=== PATIENT | male | born 1990 | race Two or more races ===

== ENCOUNTER 2019-12-05 18:29 | Inpatient (IN) | payer OTHER ==
[2019-12-05 19:08] VITALS: BMI 22.4
--- NOTE | 2019-12-05 21:23 | HP ---
CIWA Score Nausea/Vomitin Muscle Tremors: 3 Anxiety: 3 Agitation: 2 Paroxysmal Sweats: 3 Orientation: 0-Oriented Tacttile Disturbances: 0-None Auditory Disturbances: 0-None Visual Disturbances: 0-None Headache: 4-Moderately Severe CIWA-Ar Total Score: 18 - Admission Criteria OASAS Guidelines: Admission for Medically Managed Detox: Requires at least one of the followin. CIWA greater than 12 2. Seizures within the past 24 hours 3. Delirium tremens within the past 24 hours 4. Hallucinations within the past 24 hours 5. Acute intervention needed for co occurring medical disorder 6. Acute intervention needed for co occurring psychiatric disorder 7. Severe withdrawal that cannot be handled at a lower level of care (continued vomiting, continued diarrhea, abnormal vital signs) requiring intravenous medication and/or fluids 8. Admission ROS [facility] Chief Complaint: Seeking admission to detox from benzo. Allergies/Adverse Reactions: Allergies Allergy/AdvReac Type Severity Reaction Status Date / Time No Known Allergies Allergy Verified 12/05/19 19:00 History of Present Illness: 29 years old male with a year of benzo. and heroin dependence is seeking admission to detox. Patient reports insignificant period of sobriety. He denies medical history, psych. history, suicide attempt and suicidal ideation at this time. Patient reports [facility]. This is his first admission to [facility]. He is on 40mg tablet oral daily methadone maintenance therapy. Dose is yet to be confirmed by the nurse. Patient reports that he was referred from [facility] emergency room, [place]. He denies blackouts Confidential Drug Utilization Report Search Terms: enrique tabares, 1990 Search Date: 12/05/2019 09:42:37 PM The Drug Utilization Report below displays all of the controlled substance prescriptions, if any, that your patient has filled in the last twelve months. The information displayed on this report is compiled from pharmacy submissions to the Department, and accurately reflects the information as submitted by the pharmacies. You have not added a WOODY number. Keeping your WOODY number(s) up to date on the My WOODY Numbers page will enable the separation of your prescriptions from others ' in the search results. Others' Prescriptions Patient Name: Enrique Tabares Date: 1990 Address: [address] [place] [address] Sex: Male Rx Written Rx Dispensed Drug Quantity Days Supply Prescriber Name 08/28/2019 08/30/2019 buprenorphine-naloxone 4-1 mg sl film 14 7 MaddirusselloRsamaria pérezravin * - Drugs marked with an asterisk are compound drugs. If the compound drug is made up of more than one controlled jeronimo Exam Limitations: No Limitations - Ebola screening Have you traveled outside of the country in the last 21 days: No Have you had contact with anyone from an Ebola affected area: No Do you have a fever: No - Review of Systems Constitutional: Chills, Malaise, Night Sweats EENT: reports: Nose Congestion Respiratory: reports: No Symptoms reported Cardiac: reports: No Symptoms Reported GI: reports: Diarrhea (x 2), Poor Fluid Intake, Vomiting (x 1), Abdominal cramping : reports: No Symptoms Reported Musculoskeletal: reports: Back Pain, Joint Pain, Muscle Pain Integumentary: reports: Dryness, Flushing Neuro: reports: Tremors Endocrine: reports: No Symptoms Reported Hematology: reports: No Symptoms Reported Psychiatric: reports: Judgement Intact, Mood/Affect Appropiate, Orientated x3 Other Systems: Reviewed and Negative Patient History - Patient Medical History Hx Anemia: No Hx Asthma: No Hx Chronic Obstructive Pulmonary Disease (COPD): No Hx Cancer: No Hx Cardiac Disorders: No Hx Congestive Heart Failure: No Hx Hypertension: No Hx Hypercholesterolemia: No Hx Pacemaker: No HX Cerebrovascular Accident: No Hx Seizures: No Hx Dementia: No Hx Diabetes: No Hx Gastrointestinal Disorders: No Hx Liver Disease: No Hx Genitourinary Disorders: No Hx Sexually Transmitted Disorders: No Hx Renal Disease (ESRD): No Hx Thyroid Disease: No Hx Human Immunodeficiency Virus (HIV): No (Negative 2018) Hx Hepatitis C: No Hx Depression: No Hx Suicide Attempt: No (Denies suicidal ideation at this time) Hx Bipolar Disorder: No Hx Schizophrenia: No - Patient Surgical History Past Surgical History: No Hx Neurologic Surgery: No Hx Cataract Extraction: No Hx Cardiac Surgery: No Hx Lung Surgery: No Hx Abdominal Surgery: No Hx Appendectomy: No Hx Cholecystectomy: No Hx Genitourinary Surgery: No Hx Orthopedic Surgery: No Anesthesia Reaction: No - PPD History Previous Implant?: Yes Documented Results: Negative w/o proof Implanted On Prior R Admission?: No PPD to be Administered?: Yes - Reproductive History Patient is a Female of Child Bearing Age (11 -55 yrs old): No (male) - Smoking Cessation Smoking history: Current every day smoker Have you smoked in the past 12 months: Yes Aproximately how many cigarettes per day: 20 Hx Chewing Tobacco Use: No Initiated information on smoking cessation: Yes 'Breaking Loose' booklet given: 12/05/19 - Substance & Tx. History Hx Alcohol Use: No Hx Substance Use: Yes Substance Use Type: Cocaine, Opiates, Prescribed Hx Substance Use Treatment: Yes ([facility], [place]) - Substances abused Heroin Substance route: Inhalation Frequency: Daily Amount used: 1 gram Age of first use: 28 Date of last use: 12/04/19 Cocaine Substance route: Inhalation Frequency: Daily Amount used: $20 Age of first use: 29 Date of last use: 12/04/19 Alprazolam (Xanax) Substance route: Oral Frequency: Daily Amount used: 2mg Age of first use: Date of last use: 12/05/19 Admission Physical Exam S - Vital Signs Vital Signs: Vital Signs - 24 hr 12/05/19 12/05/19 19:00 19:37 Temperature 98.5 F 98.5 F Pulse Rate 91 H 91 H Respiratory 16 16 Rate Blood Pressure 124/68 124/68 - Physical General Appearance: Yes: Moderate Distress, Tremorous, Sweating, Anxious HEENTM: Yes: Within Normal Limits, EOMI, Normal ENT Inspection, Normal Voice, ABHISHEK Respiratory: Yes: Lungs Clear, Normal Breath Sounds, No Respiratory Distress Neck: Yes: Within Normal Limits Breast: Yes: Breast Exam Deferred Cardiology: Yes: Tachycardia Abdominal: Yes: Normal Bowel Sounds, Soft Genitourinary: Yes: Within Normal Limits Back: Yes: Normal Inspection Musculoskeletal: Yes: Back pain, Muscle Pain Extremities: Yes: Tremors Neurological: Yes: Within Normal Limits, Alert, Normal Mood/Affect Integumentary: Yes: Warm Lymphatic: Yes: Within Normal Limits - Diagnostic (1) Opioid dependence with withdrawal Current Visit: Yes Status: Acute (2) Nicotine dependence Current Visit: Yes Status: Chronic Qualifiers: Nicotine product type: cigarettes Substance use status: in withdrawal Qualified Code(s): F17.213 - Nicotine dependence, cigarettes, with withdrawal (3) Methadone maintenance therapy patient Current Visit: Yes Status: Chronic (4) Cocaine dependence Current Visit: Yes Status: Acute Qualifiers: Substance use status: in withdrawal Qualified Code(s): F14.23 - Cocaine dependence with withdrawal Cleared for Admission S - Detox or Rehab [facility] Level of Care: Medically Managed Detox Regimen/Protocol: Valium Claeared for Rehab Admission: No Breathalyzer - Breathalyzer Breathalyzer: 0 Urine Drug Screen - Test Device Lot number: [id number] Expiration date: 06/07/21 - Control Is test valid?: Yes - Results Drug screen NEGATIVE: No Urine drug screen results: ANN-Cocaine, FEN-Fentanyl, MOP-Opiates, MTD-Methadone , BZO-Benzodiazepines Inpatient Rehab Admission - Rehab Decision to Admit Inpatient rehab admission?: No
[2019-12-05] MEDS ORDERED: MENTHOL/PHENOL 1 EACH UD MM PRN (21:46)
[2019-12-05] MEDS ORDERED: MAGNESIUM CITRATE 300 ML BOTTLE PO PRN (21:46)
[2019-12-05] MEDS ORDERED: hydrOXYzine PAMOATE 25 MG CAPSULE (FP) PO PRN (21:46)
[2019-12-05] MEDS ORDERED: BISMUTH SUBSALICYLATE 524 MG/30 ML UD PO PRN (21:46)
[2019-12-05] MEDS ORDERED: MAGNESIUM HYDROX 2400MG/30ML ORAL SUSPENSION 30 ML CUP PO PRN (21:46)
[2019-12-05] MEDS ORDERED: METHOCARBAMOL 500 MG TABLET PO PRN (21:46)
[2019-12-05] MEDS ORDERED: NICOTINE POLACRILEX 2 MG GUM BUC PRN (21:46)
[2019-12-05] MEDS ORDERED: MAG HYDROX/AL HYDROX/SIMETH 30 ML UNIT-DOSE CUP PO PRN (21:46)
[2019-12-05] MEDS ORDERED: ACETAMINOPHEN 325 MG TABLET (FP) PO PRN ×2 (21:46)
[2019-12-05] MEDS: diazePAM 5 MG TABLET PO SCH (23:31)
[2019-12-05] MEDS: MELATONIN 5 MG TABLETS PO PRN (23:32)
[2019-12-05] MEDS: THIAMINE HCL 100 MG TABLET (FP) PO SCH (23:32)
[2019-12-06] MEDS: diazePAM 5 MG TABLET PO SCH ×3 (05:59→22:07)
[2019-12-06] MEDS: IBUPROFEN 400 MG TABLET (FP) PO PRN (08:37)
[2019-12-06] MEDS: NICOTINE 21 MG/24 HOURS TOPICAL PATCH TD SCH (10:11)
[2019-12-06] MEDS: diazePAM 5 MG TABLET PO PRN (10:11)
[2019-12-06] MEDS: PRENATAL VITAMINS W/ FOLIC ACID TABLET (FP) PO SCH (10:11)
[2019-12-06 10:26] LABS: HEMATOCRIT 42.6 % (35.4-49); HEMOGLOBIN 13.8 GM/dL (11.7-16.9); MCH 27.4 pg (25.7-33.7); MCHC 32.3 g/dl (32.0-35.9); MEAN CELL VOLUME 84.8 fl (80-96); MEAN PLT VOLUME 8.4 fl (7.5-11.1); PLATELET COUNT 285 K/MM3 (134-434); RBC 5.02 M/mm3 (4.00-5.60); WHITE BLOOD COUNT 6.2 K/mm3 (4.0-10.0)
[2019-12-06 10:47] LABS: ALBUMIN 3.5 g/dl (3.4-5.0); BILIRUBIN,TOTAL 0.3 mg/dL (0.2-1); CALCIUM 8.9 mg/dL (8.5-10.1); POTASSIUM 4.2 mmol/L (3.5-5.1); TOT PROT 6.7 g/dl (6.4-8.2)
[2019-12-06] MEDS ORDERED: METHADONE HCL 10 MG TABLET (FOR DETOX USE ONLY) PO ONE (11:51)
--- NOTE | 2019-12-06 11:57 | PN ---
[facility] CIWA - CIWA Score Nausea/Vomitin-Mild Nausea/No Vomiting Muscle Tremors: 3 Anxiety: 3 Agitation: 2 Paroxysmal Sweats: 2 Orientation: 0-Oriented Tacttile Disturbances: 0-None Auditory Disturbances: 0-None Visual Disturbances: 1-Very Mild Sensitivity Headache: 1-Very Mild CIWA-Ar Total Score: 13 BHS COWS - Scale Resting Pulse: 1= MT 81-100 Sweatin= Chills/Flushing Restless Observation: 0= Sits Still Pupil Size: 1= Pupils >than Normal Bone or Joint Aches: 1= Mild Discomfort Runny Nose/ Eye Tearin= Nasal Congestion GI Upset > 30mins: 1= Stomach Cramp Tremor Observation of Outstretched Hands: 2= Slight Tremor Visible Yawning Observation: 1= 1-2x During Session Anxiety or Irritability: 1=Feels Anxious/Irritable Goose Flesh Skin: 3=Piloerection COWS Score: 13 S Progress Note (SOAP) Subjective: 29 years old male admitted on 12/05/19 for benzo and opiate withdrawal sx management treating with valium detox regimen reports in methadone program dosage can not be verified due to "weeks" not show up in the program positive mtd mop fen utox upon admission begin methadone detox regiment patient prefers returning to methadone program upon discharged from detox Objective: 12/06/19 11:56 Vital Signs Temperature 97.8 F 12/06/19 08:35 Pulse Rate 100 H 12/06/19 08:35 Respiratory Rate 16 12/06/19 08:35 Blood Pressure 138/82 12/06/19 08:35 O2 Sat by Pulse Oximetry (%) Laboratory Last Values WBC 6.2 K/mm3 (4.0-10.0) 12/06/19 07:30 RBC 5.02 M/mm3 (4.00-5.60) 12/06/19 07:30 Hgb 13.8 GM/dL (11.7-16.9) 12/06/19 07:30 Hct 42.6 % (35.4-49) 12/06/19 07:30 MCV 84.8 fl (80-96) 12/06/19 07:30 MCH 27.4 pg (25.7-33.7) 12/06/19 07:30 MCHC 32.3 g/dl (32.0-35.9) 12/06/19 07:30 RDW 13.0 % (11.9-15.9) 12/06/19 07:30 Plt Count 285 K/MM3 (134-434) 12/06/19 07:30 MPV 8.4 fl (7.5-11.1) 12/06/19 07:30 Sodium 138 mmol/L (136-145) 12/06/19 07:30 Potassium 4.2 mmol/L (3.5-5.1) 12/06/19 07:30 Chloride 105 mmol/L (98-107) 12/06/19 07:30 Carbon Dioxide 25 mmol/L (21-32) 12/06/19 07:30 Anion Gap 7 MMOL/L (8-16) L 12/06/19 07:30 BUN 18.0 mg/dL (7-18) 12/06/19 07:30 Creatinine 1.0 mg/dL (0.55-1.3) 12/06/19 07:30 Est GFR (CKD-EPI)AfAm 119.02 12/06/19 07:30 Est GFR (CKD-EPI)NonAf 102.69 12/06/19 07:30 Random Glucose 93 mg/dL (74-106) 12/06/19 07:30 Calcium 8.9 mg/dL (8.5-10.1) 12/06/19 07:30 Total Bilirubin 0.3 mg/dL (0.2-1) 12/06/19 07:30 AST 15 U/L (15-37) 12/06/19 07:30 ALT 21 U/L (13-61) 12/06/19 07:30 Alkaline Phosphatase 86 U/L (45-117) 12/06/19 07:30 Total Protein 6.7 g/dl (6.4-8.2) 12/06/19 07:30 Albumin 3.5 g/dl (3.4-5.0) 12/06/19 07:30 RPR Titer Nonreactive (NONREACTIVE) 12/06/19 07:30 lab noted Assessment: 12/06/19 11:57 benzo and opiate withdrawal Plan: valium and methadone regiments
[2019-12-06] MEDS: THIAMINE HCL 100 MG TABLET (FP) PO SCH (22:07)
[2019-12-06] MEDS: MELATONIN 5 MG TABLETS PO PRN (22:08)
[2019-12-07] MEDS: IBUPROFEN 400 MG TABLET (FP) PO PRN ×2 (02:57→15:21)
[2019-12-07] MEDS ORDERED: METHADONE HCL 10 MG TABLET (FOR DETOX USE ONLY) PO ONE (06:00)
[2019-12-07] MEDS: diazePAM 5 MG TABLET PO SCH ×2 (06:02→17:53)
[2019-12-07] MEDS: PRENATAL VITAMINS W/ FOLIC ACID TABLET (FP) PO SCH (10:19)
[2019-12-07] MEDS: NICOTINE 21 MG/24 HOURS TOPICAL PATCH TD SCH (10:20)
--- NOTE | 2019-12-07 11:47 | PN ---
[facility] CIWA - CIWA Score Nausea/Vomitin-No Nausea/No Vomiting Muscle Tremors: 2 Anxiety: 2 Agitation: 2 Paroxysmal Sweats: 1-Minimal Palms Moist Orientation: 0-Oriented Tacttile Disturbances: 0-None Auditory Disturbances: 0-None Visual Disturbances: 0-None Headache: 1-Very Mild CIWA-Ar Total Score: 8 BHS COWS - Scale Resting Pulse: 1= OR 81-100 Sweatin= Chills/Flushing Restless Observation: 0= Sits Still Pupil Size: 0= Normal to Room Light Bone or Joint Aches: 1= Mild Discomfort Runny Nose/ Eye Tearin= Nasal Congestion GI Upset > 30mins: 1= Stomach Cramp Tremor Observation of Outstretched Hands: 2= Slight Tremor Visible Yawning Observation: 0= None Anxiety or Irritability: 1=Feels Anxious/Irritable Goose Flesh Skin: 0=Smooth Skin COWS Score: 8 S Progress Note (SOAP) Subjective: 29 years old male admitted on 12/05/19 for benzo and opiate withdrawal sx management treating with valium and methadone detox regiment feeling ok today trouble sleep at night less tremor mild general body ache Objective: 12/07/19 11:51 Vital Signs Temperature 97.0 F L 12/07/19 08:55 Pulse Rate 90 12/07/19 08:55 Respiratory Rate 20 12/07/19 08:55 Blood Pressure 139/90 12/07/19 08:55 O2 Sat by Pulse Oximetry (%) Laboratory Last Values WBC 6.2 K/mm3 (4.0-10.0) 12/06/19 07:30 RBC 5.02 M/mm3 (4.00-5.60) 12/06/19 07:30 Hgb 13.8 GM/dL (11.7-16.9) 12/06/19 07:30 Hct 42.6 % (35.4-49) 12/06/19 07:30 MCV 84.8 fl (80-96) 12/06/19 07:30 MCH 27.4 pg (25.7-33.7) 12/06/19 07:30 MCHC 32.3 g/dl (32.0-35.9) 12/06/19 07:30 RDW 13.0 % (11.9-15.9) 12/06/19 07:30 Plt Count 285 K/MM3 (134-434) 12/06/19 07:30 MPV 8.4 fl (7.5-11.1) 12/06/19 07:30 Sodium 138 mmol/L (136-145) 12/06/19 07:30 Potassium 4.2 mmol/L (3.5-5.1) 12/06/19 07:30 Chloride 105 mmol/L (98-107) 12/06/19 07:30 Carbon Dioxide 25 mmol/L (21-32) 12/06/19 07:30 Anion Gap 7 MMOL/L (8-16) L 12/06/19 07:30 BUN 18.0 mg/dL (7-18) 12/06/19 07:30 Creatinine 1.0 mg/dL (0.55-1.3) 12/06/19 07:30 Est GFR (CKD-EPI)AfAm 119.02 12/06/19 07:30 Est GFR (CKD-EPI)NonAf 102.69 12/06/19 07:30 Random Glucose 93 mg/dL (74-106) 12/06/19 07:30 Calcium 8.9 mg/dL (8.5-10.1) 12/06/19 07:30 Total Bilirubin 0.3 mg/dL (0.2-1) 12/06/19 07:30 AST 15 U/L (15-37) 12/06/19 07:30 ALT 21 U/L (13-61) 12/06/19 07:30 Alkaline Phosphatase 86 U/L (45-117) 12/06/19 07:30 Total Protein 6.7 g/dl (6.4-8.2) 12/06/19 07:30 Albumin 3.5 g/dl (3.4-5.0) 12/06/19 07:30 RPR Titer Nonreactive (NONREACTIVE) 12/06/19 07:30 lab noted Assessment: 12/07/19 11:51 benzo and opiate withdrawal Plan: velium and methadone regiments
[2019-12-07] MEDS: diazePAM 5 MG TABLET PO PRN (21:55)
[2019-12-07] MEDS: MELATONIN 5 MG TABLETS PO PRN (21:55)
[2019-12-07] MEDS: THIAMINE HCL 100 MG TABLET (FP) PO SCH (21:55)
[2019-12-08] MEDS ORDERED: diazePAM 5 MG TABLET PO ONE (06:00)
[2019-12-08 09:36] VITALS: BP 140/89; PULSE 114; TEMP 97
[2019-12-09] MEDS ORDERED: METHADONE HCL 5 MG TABLET (FOR DETOX USE ONLY) PO ONE (05:00)
--- NOTE | 2019-12-09 16:34 | EKG ---
Test Reason : Blood Pressure : / mmHG Vent. Rate : 071 BPM Atrial Rate : 071 BPM P-R Int : 106 ms QRS Dur : 086 ms QT Int : 384 ms P-R-T Axes : 033 065 053 degrees QTc Int : 417 ms SINUS RHYTHM WITH SINUS ARRHYTHMIA WITH SHORT IA ST ELEVATION, CONSIDER EARLY REPOLARIZATION BORDERLINE ECG WHEN COMPARED WITH ECG OF 05-DEC-2019 22:29, PREMATURE VENTRICULAR COMPLEXES ARE NO LONGER PRESENT Confirmed by MD JONG, RODNEY ([id number]) on 12/09/2019 4:34:11 PM Referred By: Confirmed By:RODNEY SUNSHINE MD
== END 2019-12-08 09:57 | disposition home or self-care (01) | DRG 773 ==
LOC: YASAS 18:29 → Y3N 22:08
PROVIDERS: ADMIT Allergy & Immunology; ATTEND Allergy & Immunology
PROC: HZ2ZZZZ Detoxification Services for Substance Abuse Treatment (ICD-10-PCS; principal; 2019-12-05)
DX: F11.23 Opioid dependence with withdrawal (principal); F13.20 Sedative, hypnotic or anxiolytic dependence, uncomplicated; F14.20 Cocaine dependence, uncomplicated; F17.210 Nicotine dependence, cigarettes, uncomplicated
CPT/HCPCS: 36415; 80053; 85027; 86593; 93005; 93010